=== PATIENT | male | born 1960 | race Native Hawaiian/Other Pacific Islander ===

== ENCOUNTER 2019-05-12 10:39 | Outpatient (CLI) | payer OTHER ==
[2019-05-12 11:52] LABS: PLATELET COUNT 214 K/uL (142-355)
[2019-05-12 12:12] LABS: POTASSIUM 4.2 mmol/L (3.6-5.2)
== END 2019-05-12 23:26 | disposition home or self-care (01) ==
LOC: LABW 10:39
PROVIDERS: Internal Medicine
DX: N18.2 Chronic kidney disease, stage 2 (mild) (principal); E11.9 Type 2 diabetes mellitus without complications; N52.9 Male erectile dysfunction, unspecified; R42 Dizziness and giddiness
CPT/HCPCS: 36415; 80053; 80061; 81000; 82043; 82306; 82570; 82607; 82746; 83036; 83735; 83970; 84100; 84153; 84155; 84402; 84403; 85027; 85651; 86038; 86140